=== PATIENT | male | born 1945 | race Hispanic/Latino ===

== ENCOUNTER 2019-08-19 13:38 | Emergency (ER) | payer MEDICARE, OTHER ==
[~2019-08-19] VITALS: Ht 157.5 cm; Wt 74.4 kg
[2019-08-19] MEDS ORDERED: TETANUS/DIPHTHERIA TOX ADULT 0.5 ML SYR IM ONE (14:00)
[2019-08-19] MEDS ORDERED: HYDROCODONE/APAP 5MG-325MG TAB PO ONE (14:15)
--- NOTE | 2019-08-19 14:20 | NUR ---
PT HAND PLACED IN SODIUM CHLORIDE 0.9% WITH BETADINE SOLUTION TO SOAK FOR 20 MIN PER ORDERS FROM [facility].
[2019-08-19] MEDS ORDERED: NEOMYCIN/POLYMYX/BACITR OINT 0.9 GM PKT TOP ONE (15:15)
--- NOTE | 2019-08-19 15:20 | Diagnostic Imaging Report ---
Left hand radiograph 3 views HISTORY: Pain. COMPARISON: None available. FINDINGS: Bones: Traumatic amputation of the fourth digit distal tuft and subtle traumatic amputation and fracture of the third digit distal tuft Joints: Normal joint alignment. Mild degenerative changes at the triscaphe joint. Soft tissues: Soft tissue defects of the distal aspects of the third and fourth digit. IMPRESSION: Traumatic amputation of the fourth digit distal tuft and traumatic amputation and fracture of distal aspect of the third digit distal tuft Mild degenerative changes in the hand. Signed by: Andrea Vivas DO on 08/19/2019 3:17 PM
[2019-08-19 15:33] VITALS: BP 144/76
[2019-08-21] MEDS ORDERED: OMEPRAZOLE40 MG PO (15:31)
[2019-08-21] MEDS ORDERED: SAW PALMETTO450 MG PO (15:31)
[2019-08-21] MEDS ORDERED: CEPHALEXIN500 MG PO (15:35)
[2019-08-22] MEDS ORDERED: ULTRAM 50MG50 MG PO (07:02)
== END 2019-08-19 15:37 | disposition home or self-care (01) ==
LOC: ER 13:38
DX: S68.121A Partial traumatic metacarpophalangeal amputation of left index finger, initial encounter (principal); S68.123A Partial traumatic metacarpophalangeal amputation of left middle finger, initial encounter; W26.8XXA Contact with other sharp object(s), not elsewhere classified, initial encounter; Y93.H2 Activity, gardening and landscaping; Y92.007 Garden or yard of unspecified non-institutional (private) residence as the place of occurrence of the external cause; K21.9 Gastro-esophageal reflux disease without esophagitis
CPT/HCPCS: 90471; 90714; 99283

== ENCOUNTER → 2019-08-22 | Day surgery (SDC) | payer MEDICARE ==
[2019-08-21 16:14] LABS: BASOPHILS # (AUTO) 0.1 (0.0-0.1); BASOPHILS % 0.6 % (0.0-1.0); EOSINOPHILS # (AUTO) 0.2 (0.0-0.4); HEMATOCRIT 40.7 % (38.2-49.6); HEMOGLOBIN 13.8 g/dL (14.0-18.0); LYMPHOCYTES # (AUTO) 3.2 (1.0-3.2); LYMPHOCYTES % 35.8 % (18.0-39.1); MEAN CORPUSCULAR HEMOGLOBIN 31.2 pg (28-32); MEAN CORPUSCULAR HGB CONC 33.9 g/dL (31-35); MEAN CORPUSCULAR VOLUME 91.9 fL (81-99); MONOCYTES # (AUTO) 0.8 (0.2-0.8); MONOCYTES % 8.8 % (4.4-11.3); NEUTROPHILS # (AUTO) 4.7 (2.1-6.9); NEUTROPHILS % 52.5 % (38.7-80.0); PLATELET COUNT 307 x10e3/uL (140-360); RED BLOOD COUNT 4.43 x10e6/uL (4.3-5.7); RED CELL DISTRIBUTION WIDTH 14.2 % (11.7-14.4)
--- NOTE | 2019-08-21 16:51 | Diagnostic Imaging Report ---
EXAMINATION: CHEST 2 VIEWS INDICATION: Pre-operative COMPARISON: None FINDINGS: LINES/TUBES:None LUNGS:The lungs are moderately inflated. No focal consolidation or pulmonary edema. Nodular opacity overlying the right lower lung zone likely represents nipple shadow. PLEURA:No pleural effusion or pneumothorax. MEDIASTINUM:The cardiomediastinal silhouette appears normal in size and shape. Atherosclerotic calcifications of the thoracic aorta. BONES/SOFT TISSUES:No acute osseous injury. ABDOMEN:No free air under the diaphragm. IMPRESSION: No focal pneumonia or pulmonary edema. Signed by: Barbara Parker MD on 08/21/2019 4:48 PM
[~2019-08-22] MED LIST: BUPIVACAINE HCL 0.5% INJ 30 ML VIAL INJ ONE; CEPHALEXIN500 MG PO; CLINDAMYCIN 600MG / 50ML 50 ML IV ONE; FENTANYL CITRATE/PF 100MCG/2 ML INJ ONE; KETOROLAC TROMETHAMINE 30 MG/ML VIAL ONE; LIDOCAINE HCL 2% LOCAL INJ 5 ML SDV VIAL INJ ONE; MUPIROCIN 2% OINT 22 GM TUBE ONE; OMEPRAZOLE40 MG PO; ONDANSETRON HCL INJ 2MG/ML 2ML 2 MG/ML VIAL ONE; PHENYLEPHRINE HCL 1% 10 MG/ML VIAL ONE; PROPOFOL IV EMULSION 10 MG/ML 20 ML VIAL ONE; SAW PALMETTO450 MG PO; SEVOFLURANE INHAL SOLN 250 ML PEN BTL ONE; ULTRAM 50MG50 MG PO
--- OUTSIDE RECORDS SUMMARY | 2019-08-22 05:44 | XMS REPORT ---
Author Author [facility] Address Unknown Phone Unavailable Care Team Providers Care Mule Spinner Name Role Phone SHUBHAM PALENCIA Unavailable Unavailable VIGIL, DARREL Unavailable Unavailable Problems This patient has no known problems. Allergies, Adverse Reactions, Alerts This patient has no known allergies or adverse reactions. Medications This patient has no known medications. Results Test Description Test Time Test Comments Text Results Atomic Results Result Comments CHEST 2 VIEWS 2019-08-21 16:47:00 [place] [address] Patient Name: IVETTE MARTÍNEZ MR #: [id number] : 1945 Age/Sex: 73/M Req #: [id number] Adm Physician: Ordered by: SHUBHAM PALENCIA MD Report #: [id number] Location: OR Room/Bed: Procedure: [id number] DX/CHEST 2 VIEWS Exam Date: 08/21/19 Exam Time: 1602 REPORT STATUS: Signed EXAMINATION: CHEST 2 VIEWS INDICATION: Pre-operative COMPARISON: None FINDINGS: LINES/TUBES:None LUNGS:The lungs are moderately inflated. No focal consolidation or pulmonary edema. Nodular opacity overlying the right lower lung zone likely represents nipple shadow. PLEURA:No pleural effusion or pneumothorax. MEDIASTINUM:The cardiomediastinal silhouette appears normal in size and shape. Atherosclerotic calcifications of the thoracic aorta. BONES/SOFT TISSUES:No acute osseous injury. ABDOMEN:No free air under the diaphragm. IMPRESSION: No focal pneumonia or pulmonary edema. Signed by: Jairo Lezama MD on 08/21/2019 4:48 PM Dictated By: JAIRO LEZAMA MD 47 Transcribed By: MENA on 08/21/191647 COPY TO: SHUBHAM PALENCIA MD HAND 3+ VIEWS LEFT 2019-08-19 15:14:00 [place] [address] Patient Name: IVETTE MARTÍNEZ MR #: [id number] : 1945 Age/Sex: 73/M Req #: [id number] Adm Physician: Ordered by: ABEBA BURTON NP Report #: [id number] Location: ER Room/Bed: Procedure: [id number] DX/HAND 3+ VIEWS LEFT Exam Date: 08/19/19 Exam Time: 1410 REPORT STATUS: Signed Left hand radiograph 3 views HISTORY: Pain. COMPARISON: None available. FINDINGS: Bones: Traumatic amputation of the fourth digit distal tuft and subtle traumatic amputation and fracture of the third digit distal tuft Joints: Normal joint alignment. Mild degenerative changes at the triscaphe joint. Soft tissues: Soft tissue defects of the distal aspects of the third and fourth digit. IMPRESSION: Traumatic amputation of the fourth digit distal tuft and traumatic amputation and fracture of distal aspect of the third digit distal tuft Mild degenerative changes in the hand. Signed by: Andrea Vivas DO on 08/19/2019 3:17 PM Dictated By: ANDREA VIVAS DO 151 Transcribed By: MENA on 08/19/191516 COPY TO: ABEBA BURTON NP
[2019-08-22 10:27] VITALS: BP 118/70
--- NOTE | 2019-08-22 17:05 | Operative Report ---
DATE OF PROCEDURE: 08/22/2019 SURGEON: Laz Kelley MD PREOPERATIVE DIAGNOSES: Transverse amputations of left long and ring finger, distal phalanx level. SECONDARY DIAGNOSES: Open fractures of left long and ring finger, distal phalanges. POSTOPERATIVE DIAGNOSES: Open fractures of left long and ring finger, distal phalanges. PROCEDURES: 1. Excisional debridement of distal phalanx, left long and left ring fingers. 2. V-Y flap closures of left long and ring fingers. ANESTHESIA: General. HISTORY: The patient is a 73-year-old [id number]-qvfrjiwy male, who sustained an injury from a powered carpenter repairer, which amputated various lines of the distal phalanges of the left long and ring fingers. The long finger has the amputation approximately midway through the distal tuft and the ring finger has the amputation midway through the body of the distal phalanx. The risks, benefits, and alternatives were discussed with the patient and the family. They are prepared to undergo the procedure as outlined. PROCEDURE IN DETAIL: The patient was marked preoperatively in the holding area. He was brought to the operating theater and after the induction of adequate general anesthesia, he was prepped and draped in a supine position and a time-out was performed. The procedure was begun by first sharply excising all the devitalized skin and subcutaneous tissues from the injury. At this point, the exposed distal phalanx of the long and the ring finger are identified and using a rongeur, these are cut back until they are at the level of the wound and slightly below it. At this point, the wounds were irrigated with bacteriostatic saline and when no further devitalized or compromised tissue was noted, V-Y advancement flaps were marked out on the volar aspect of the long and the ring fingers. The apex was located at the digital flexion crease. The incisions were made through the skin and subcutaneous tissues. Venous tributaries were controlled with the bipolar cautery. The dissections are continued into the subcutaneous plane only deep enough to allow the flaps to advance to the distal aspect of the nail matrix without tension. Once this was achieved, the nail plates are elevated off the sterile matrix using a Logan elevator. A 5-0 chromic is then used to approximate the distal edge of the V-Y flap to the distal edge of the nail matrix. Interrupted sutures were used. Once this has been performed on both fingers, then the remaining incisions are closed with 5-0 chromic in an interrupted fashion. The resultant defect was a Y-shaped incision that was completely approximated on both fingers. The tourniquet was deflated and the fingers pinked up nicely as to the flaps and the incisions were noted to be hemostatic. At this juncture, Bactroban ointment, Xeroform gauze, and sterile dressings were applied to each finger and this was held in place with loosely wrapped Coban. The estimated blood loss of procedure was negligible. He was returned to recovery room in satisfactory condition and discharged with a postoperative instruction sheet as well as a followup appointment. MD IFRAH Zamorano/FOREST /[phone]
== END | disposition home or self-care (01) ==
LOC: OR 05:42
PROVIDERS: ATTEND Plastic Surgery
DX: S62.633B Displaced fracture of distal phalanx of left middle finger, initial encounter for open fracture (principal); S62.635B Displaced fracture of distal phalanx of left ring finger, initial encounter for open fracture; K21.9 Gastro-esophageal reflux disease without esophagitis; I45.10 Unspecified right bundle-branch block; W31.89XA Contact with other specified machinery, initial encounter; Z88.6 Allergy status to analgesic agent; Z88.0 Allergy status to penicillin; Z01.810 Encounter for preprocedural cardiovascular examination; Z01.812 Encounter for preprocedural laboratory examination; Z01.818 Encounter for other preprocedural examination
CPT/HCPCS: 14040 ×2; 26236 ×2; 36415; 71046; 85025; 93005; J1885; J2001; J2370; J2405; J2704; J3010